=== PATIENT | male | born 1965 | race Caucasian/White ===

== ENCOUNTER → 2021-02-09 14:57 | Outpatient (BNVA) | payer OTHER, SELFPAY | PROVIDERS: PCP Nurse Practitioner; Visit Provider Internal Medicine Cardiovascular Disease | DX: I25.10 Atherosclerotic heart disease of native coronary artery without angina pectoris (principal); E78.5 Hyperlipidemia, unspecified | CPT/HCPCS: 93005; 99212 ==

== ENCOUNTER → 2022-08-09 14:35 | Outpatient (BNVA) | payer OTHER, SELFPAY | PROVIDERS: PCP Nurse Practitioner; Referring Provider Nurse Practitioner; Visit Provider Internal Medicine Cardiovascular Disease | DX: I25.10 Atherosclerotic heart disease of native coronary artery without angina pectoris (principal) | CPT/HCPCS: 93005 ==

== ENCOUNTER → 2023-02-10 15:33 | Outpatient (BNVA) | payer OTHER, SELFPAY | PROVIDERS: PCP Nurse Practitioner; Visit Provider Internal Medicine Cardiovascular Disease ==

== ENCOUNTER 2023-09-12 14:45 | Outpatient (AMB) | payer OTHER, SELFPAY ==
--- NOTE | 2023-09-12 15:06 | A.OFFVIS_ITS ---
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 He has been doing well from cardiac perspective. Denies any exertional symptoms. Remains active. Takes all his medications regularly. Denies any heart failure symptoms. Denies any light- headedness, syncope. Denies any palpitations. He said diabetes can be an issue but he is managing this. Denies smoking. [facility] Medical History Diabetes mellitus Hyperlipidemia CAD (coronary artery disease) Surgical History S/P CABG x 4 Review of Systems Const Denies chills, Denies fatigue, Denies fever(s), Denies frequent falls, Denies weakness, Denies weight gain and Denies weight loss ENT Denies dizziness Card Denies chest pain, Denies leg edema, Denies lightheadedness, Denies palpitations, Denies dyspnea, Denies dyspnea on exertion, Denies orthopnea and Denies other (loss of consciousness) Resp Denies cough, Denies dyspnea and Denies dyspnea on exertion GI Denies hematochezia and Denies change in stool character Musc Denies abnormal gait, Denies muscle weakness, Denies numbness, Denies radiating pain into limb and Denies tingling Neuro Denies abnormal gait, Denies dizziness, Denies frequent falls, Denies numbness, Denies tingling and Denies weakness Endo Denies fatigue and Denies palpitations Physical Exam Vital Signs: Last Vital Signs Pulse 68 09/12/23 15:07 BP 120/70 09/12/23 15:07 BMI result Body Mass Index 24.2 Const General: cooperative, comfortable, no acute distress, alert, awake and well groomed Nutritional Appearance: average body habitus Orientation/consciousness: patient oriented x3 Limitations: no limitations Neck Neck: Yes trachea midline, Yes supple and Yes no JVD Resp Effort & Inspection: normal respiratory effort Auscultation: clear to auscultation bilaterally and diminished lung sounds Cardio Jugular venous distension: no JVD Palpation: normal PMI Rate: regular rate Rhythm: regular rhythm Heart sounds: S1 normal heart sound present, S2 normal heart sound present, no click, no gallops, no murmurs and no rubs GI Auscultation: normal bowel sounds Skin General skin exam: no rashes or lesions noted Neuro General: patient oriented x3 and no focal motor deficits Extrem General: Yes no clubbing, cyanosis or edema Office Procedures EKG Details: EKG shows normal sinus rhythm with normal EKG 20030-[id number], Complete Assessment & Plan Assessment & Plan (1) CAD (coronary artery disease): Code(s): I25.10 - Atherosclerotic heart disease of [place] coronary artery without angina pectoris Plan: CAD with premature atherosclerosis coronary bypass grafting 2003. He has risk factors of hyperlipidemia diabetes. Diabetes borderline management. He is currently having no symptoms angina although given remote coronary bypass grafting will check graft patency with exercise myocardial perfusion imaging. This should be done every 5 years. Currently continue aggressive medical therapy. Lifelong aspirin therapy is advised. Continue current dual therapy with ezetimibe and high-intensity statin therapy. Target goal LDL closer to 60 mg/dL. Continue aggressive diabetes management goal hemoglobin A1c less than 7%. Encouraged to continue to participate in physical activity as tolerated. Will follow up in the clinic in 1 year's time, sooner p.r.n.. Thank you for allowing me to partake in his care Orders: Orders CA stress test 09/12/23 I25.10 - Atherosclerotic heart disease of [place] coronary artery without angina pectoris NM cardiolite stress test 2 Weeks I25.10 - Atherosclerotic heart disease of [place] coronary artery without angina pectoris, R07.9 - Chest pain, unspecified Coding Level of Care Code Est Pt Level 4 (21400) Diagnoses CAD (coronary artery disease) I25.10 CPT Codes EKG - CPT: 58145-[id number], Complete ([id number])
[2023-09-12 15:07] VITALS: BP 120/70; PULSE 68; BMI 24.2
== END 2023-09-12 15:33 | disposition home or self-care (01) ==
PROVIDERS: PCP Nurse Practitioner; Visit Provider Internal Medicine Cardiovascular Disease
DX: I25.10 Atherosclerotic heart disease of native coronary artery without angina pectoris (principal)
CPT/HCPCS: 93010; 99214

== ENCOUNTER → 2023-09-12 14:45 | Outpatient (BNVA) | payer OTHER, SELFPAY | PROVIDERS: PCP Nurse Practitioner; Visit Provider Internal Medicine Cardiovascular Disease | DX: I25.10 Atherosclerotic heart disease of native coronary artery without angina pectoris (principal); Z79.82 Long term (current) use of aspirin; Z79.899 Other long term (current) drug therapy | CPT/HCPCS: 93005 ==

== ENCOUNTER → 2023-10-19 07:55 | Outpatient (REF) | payer OTHER, SELFPAY ==
--- NOTE | ~2023-10-19 | NM_ITS ---
EXERCISE MYOCARDIAL PERFUSION STUDY INDICATION: Chest pain, assess for coronary disease and ischemia TECHNIQUE: The patient was brought in for an exercise perfusion study on 10/19/2023. Patient performed exercise as per Garth protocol and was injected 25 mCi of sestamibi once target heart rate was achieved. Images were obtained using the SPECT gamma camera interlaced with the gating device. Images were obtained in supine position. Resting perfusion study was performed on 10/23/2023. Patient was administered 25 mCi of sestamibi intravenously at rest. Images were then obtained in supine position. Images were processed with the software and compared side to side in short axis, horizontal long axis and vertical long axis views. Total DLP 83mGy-cm. FINDINGS: Raw images were reviewed. The stress perfusion study showed diminished tracer uptake in the distal part of anterior wall. Seen with CT attenuation correction as well. The gated study shows normal LV systolic function with calculated LVEF of 63%. LV cavity is normal in size. The gated study shows normal wall thickening and contraction of segments. Resting study shows no significant perfusion abnormality. Gating at rest reveals normal wall motion with ejection fraction at 59%. The findings are consistent with moderate intensity reversible perfusion defect in the distal anterior wall. NM/NM cardiolite stress test IMPRESSION: 1. Myocardial perfusion imaging study shows moderate degree of ischemia in the distal anterior wall. 2. Gated LVEF is 63% during stress and 59% during rest. 3. Transient ischemic dilatation not present. EKG component of the test reported separately.
--- NOTE | 2023-10-19 07:57 | CA_ITS ---
Acquisition Time: 2023-10-19 07:55:51 Total Exercise Time: 00:08:16 Test Indications: Chest Pain Medications: Protocol: PATTI Max HR: 166 BPM 101% of Pred: 164 BPM Max BP: 168/064 mmHG Max Work Load: 10.1 METS Exercise stress test exercise 8 min 19 sec of Patti protocol achieving 101% MPHR, without anginal symptoms, with isolated PVCs, with normotensive response to exercise, without EKG changes. Nuclear images pending. Test reviewed with Dr. Busby. Referred By: Jordan Levine Overread By: Brenda Blair
== END ==
LOC: HO.CARD 07:55
PROVIDERS: PCP Internal Medicine; Visit Provider Internal Medicine Cardiovascular Disease
DX: R07.9 Chest pain, unspecified (principal); I25.10 Atherosclerotic heart disease of native coronary artery without angina pectoris
CPT/HCPCS: 78452; 93017; A9500

== ENCOUNTER → 2023-10-19 07:57 | Outpatient (BNV) | payer OTHER, SELFPAY | PROVIDERS: PCP Internal Medicine; Visit Provider Nurse Practitioner | DX: R07.9 Chest pain, unspecified (principal) | CPT/HCPCS: 78452; 93016; 93018 ==

== ENCOUNTER 2025-01-13 14:38 | Outpatient (AMB) | payer OTHER, SELFPAY ==
--- NOTE | 2025-01-13 14:40 | MHC.OFFVIS ---
Vital Signs 01/13/25 14:41 Height 5 ft 7 in Weight 160 lb 14.999 oz BMI 25.2 BP 110/70 Blood Pressure Location Lt brachial Position Sitting Pulse 69 Pulse Source Monitor Intake Visit Reasons: r/s 09/19/24 1 yr followup w/ekg after mibi Intake Note: 1 year follow-up with ekg feeling good Process Improvement Specialist Required: No Allergies No Known Allergies Allergy (Unverified 02/27/20 17:53) Medication List - Last Reconciled 01/13/25 by Jordan Levine MD aspirin 81 mg PO DAILY 90 days atorvastatin 80 mg PO DAILY empagliflozin (Jardiance) 25 mg PO DAILY ezetimibe 10 mg PO DAILY famotidine 20 mg PO BID PRN metformin 1,000 mg PO BID tamsulosin 0.4 mg PO BEDTIME HPI Comments Details: Nataly comes for follow-up. He has been doing overall well. He comes after slight delayed 1 year office visit. Continues to remain active and has no exertional chest pain or shortness of breath. Although he says diabetes not well controlled he is trying to exercise more and controlled with lifestyle modification. He has been referred to diuretic clinic. He denies any other cardiac complaints. No prolonged palpitation irregular heartbeat. [facility] Medical History Diabetes mellitus Hyperlipidemia CAD (coronary artery disease) Surgical History S/P CABG x 4 Review of Systems Const Denies chills, Denies fatigue, Denies fever(s), Denies frequent falls, Denies weakness, Denies weight gain and Denies weight loss ENT Denies dizziness Card Denies chest pain, Denies leg edema, Denies lightheadedness, Denies palpitations, Denies dyspnea, Denies dyspnea on exertion, Denies orthopnea and Denies other (loss of consciousness) Resp Denies cough, Denies dyspnea and Denies dyspnea on exertion GI Denies hematochezia and Denies change in stool character Musc Denies abnormal gait, Denies muscle weakness, Denies numbness, Denies radiating pain into limb and Denies tingling Neuro Denies abnormal gait, Denies dizziness, Denies frequent falls, Denies numbness, Denies tingling and Denies weakness Endo Denies fatigue and Denies palpitations Physical Exam Vital Signs: Last Vital Signs Pulse 69 01/13/25 14:41 BP 110/70 01/13/25 14:41 BMI result Body Mass Index 25.2 Const General: cooperative, comfortable, no acute distress, alert, awake and well groomed Nutritional Appearance: average body habitus Orientation/consciousness: patient oriented x3 Limitations: no limitations Neck Neck: Yes trachea midline, Yes supple and Yes no JVD Resp Effort & Inspection: normal respiratory effort Auscultation: clear to auscultation bilaterally and diminished lung sounds Cardio Jugular venous distension: no JVD Palpation: normal PMI Rate: regular rate Rhythm: regular rhythm Heart sounds: S1 normal heart sound present, S2 normal heart sound present, no click, no gallops, no murmurs and no rubs GI Auscultation: normal bowel sounds Skin General skin exam: no rashes or lesions noted Neuro General: patient oriented x3 and no focal motor deficits Extrem General: Yes no clubbing, cyanosis or edema Office Procedures EKG Details: EKG shows normal sinus rhythm with normal EKG 20460-[id number], Complete Assessment & Plan Assessment & Plan (1) CAD (coronary artery disease): Code(s): I25.10 - Atherosclerotic heart disease of [place] coronary artery without angina pectoris Category: Medical Plan: Coronary artery disease with remote coronary artery bypass grafting with moderate intensity ischemia in distal anterior wall, small territory of ischemia probably in branch vessel disease with no current symptoms of angina at current workload. Encouraged to continue participate in aggressive lifestyle modification increase activity level. Continue low-dose aspirin therapy for life. Continue aggressive diabetes management goal hemoglobin A1c less than 7%, may benefit from GLP 1 antagonist. Continue high-intensity statin therapy with ezetimibe therapy. Target goal LDL less than 60 mg/dL. Advised lipid panel and CRP in near future. He is currently not smoking and this he was congratulated for. Follow up in the clinic in 1 year's time, sooner PRN. Advised to call me with any new symptoms. Orders: Orders Lipid Panel Today I25.10 - Atherosclerotic heart disease of [place] coronary artery without angina pectoris CRP High Sensitivity Today E78.5 - Hyperlipidemia, unspecified, I25.10 - Atherosclerotic heart disease of [place] coronary artery without angina pectoris Coding Level of Care Code Est Pt Level 4 (65041) Complex EM visit Add On G2211 Diagnoses CAD (coronary artery disease) I25.10 CPT Codes EKG - CPT: [id number], Complete ([id number])
--- OUTSIDE RECORDS SUMMARY | 2025-01-13 14:40 | XMS_ITS | Encounter Summary ---
Author Organization [facility] Address [address] [place] [address] Care Team Providers Care Secretary Of State Name Role Phone Jermaine Salomon [employer] Primary Care Provider [phone] Encounter Details Date Type Department Care Team ([facility] st Contact Info) Description 01/02/2025 Results Follow-Up [facility] [address] [place] [phone] Jermaine Salomon NP [address] [place] [address] Social History Tobacco Use Types Packs/Day Years Used Date Smoking Tobacco: Former Cigarettes 0.5 32 0 12/16/1990 - 12/16/2022 Passive Smoke Exposure: Past Smokeless Tobacco: Never Comments:Started smoking age 24 Alcohol Use Standard Drinks/Week Comments No 0 (1 standard drink = 0.6 oz pur e alcohol) Social Connections Answer Date Recorded Connectedness 0 02/22/2024 Financial Resource Strain Answer Date R ecorded Financial Resource Strain 0 2018 Stress Answer Date Recorded Stress 0 02/03/2019 Physical Activity Answer Date Recorded Physical Activity 0 02/03/2019 Food Insecurity Answer Date Recorded Food 0 03/07/2024 Transportation Needs Answer Date Record ed Transportation 0 02/03/2019 Housing Stability Answer Date Recorded Housing 0 02/03/2019 Safety and Environment Answer Date Braden rded Safety 0 02/03/2019 Utilities Answer Date Recorded Utilities 0 02/03/2019 Employment Answer Date Recorded Stress 0 02/22/2024 Sex and Gender Information Value Date Recorded Sex Assigned at Male 08/09/2017 10:38 AM PST Legal Sex Male 8:07 AM PST Gender Identity Male 08/09/2017 10:38 AM PST Sexual Orientation Don't know 08/09/2017 10 :38 AM PST documented as of this encounter Plan of Treatment Upcoming Encounters Date Type Department Care Team (Late st Contact Info) Description 01/28/2025 4:00 PM EDT Office Visit [facility] [address] [place] [phone] AntiJerry vilchis, PharmD [address] [place] [phone] 01/29/2025 4:30 PM EDT BH/MH Visits [address] [phone] [place] [address] [place] [phone] documented as of this encounter Goals Goal Patient Goal Type Associated Problems Recent Progress Patient-Stated? Author Blood Pressure < 130/80 Blood Pressure 115/77( 025 4:10 PM EDT) Briana Lin LPN documented as of this encounter Visit Diagnoses Not on filedocumented in this encounter Additional Health Concerns Assessment Noted Time PHQ-9 Depression Total Score: 0 06/29/19 9:03 AM PST A Depression follow-up plan has been documented for the patient 01/01/2025 7:36 PM PDT documented as of this encounter Care Teams Secretary Of State Relationship Specialty Start Date End Date Jermaine Salomon NP [address] [place] [id number] PCP - General Family Medicine, [employer] 04/09/24 documented as of this encounter
[2025-01-13 14:41] VITALS: BP 110/70; PULSE 69; BMI 25.2
== END 2025-01-13 14:56 | disposition home or self-care (01) ==
LOC: HO.HCS 14:38
PROVIDERS: PCP Internal Medicine; Visit Provider Internal Medicine Cardiovascular Disease
DX: I25.10 Atherosclerotic heart disease of native coronary artery without angina pectoris (principal)
CPT/HCPCS: 93010; 99214

== ENCOUNTER → 2025-01-13 14:38 | Outpatient (BNVA) | payer OTHER, SELFPAY | PROVIDERS: PCP Internal Medicine; Visit Provider Internal Medicine Cardiovascular Disease | DX: I25.10 Atherosclerotic heart disease of native coronary artery without angina pectoris (principal) | CPT/HCPCS: 93005 ==